=== PATIENT | male | born 1975 | race Two or more races ===

== ENCOUNTER 2025-03-07 17:29 | Emergency (ER) | payer MEDICAID, OTHER ==
[~2025-03-07] VITALS: Ht 177.8 cm; Wt 85.6 kg
[2025-03-07 17:38] VITALS: BP 152/106; PULSE 87; RESP 17; TEMP 98.4; O2SAT 97
[2025-03-08] MEDS ORDERED: PAR20T PO (05:02)
[2025-03-08] MEDS ORDERED: TAMS0.4C39 PO (05:02)
[2025-03-08] MEDS ORDERED: [UNRECOGNIZED DRUG - CODE] PO (05:03)
[2025-03-08] MEDS ORDERED: AMLO1TAB23 PO (05:03)
[2025-03-08] MEDS ORDERED: SULF1TAB75 PO (05:04)
== END 2025-03-07 20:24 | disposition left against medical advice (07) ==
LOC: ER 17:29
DX: R06.02 Shortness of breath (principal); Z53.21 Procedure and treatment not carried out due to patient leaving prior to being seen by health care provider

== ENCOUNTER 2025-03-07 20:38 | Inpatient (IN) | payer MEDICAID, OTHER ==
[~2025-03-07] VITALS: Ht 172.7 cm; Wt 83.6 kg
--- NOTE | 2025-03-07 21:02 | ED.PDOC ---
History of Present Illness HPI Comments 49-year-old male who came to ER for generalized weakness. Patient has a history of hypertension, takes amlodipine for it. Five days ago, patient notes started on Paroxetine, Tamsulosin and Sulfamethoxazole. Earlier today, after taking the said medications, he started feeling weak, dizzy, short of breath, tingling all over and felt like he was about to pass out. Denies any acute chest pains. REVIEW OF SYSTEMS: General: No fever, no chills, or fatigue HEENT: No sore throat, no earache, no congestion, no neck pain. Cardiac: No chest pain. No palpitations. Lungs: (+) shortness of breath, no cough. GI: No nausea, no vomiting, no diarrhea, no constipation, no abdominal pain : No dysuria, frequency, or urgency. No hematuria. Musculoskeletal: No joint pain , no joint swelling, no extremity edema. Skin: No rash, no itching. Neuro: No headache, (+) dizziness, (+) weakness (+) tingling EXAM: General: Awake, alert and oriented. No acute distress. Skin: Skin in warm, dry and intact. Appropriate color for ethnicity. HEENT: The head is normocephalic and atraumatic. Conjunctivae are clear without exudates or hemorrhage. Sclera is non-icteric. EOM are intact. No signs of nystagmus. Eyelids are normal in appearance without swelling or lesions. Oral mucosa is pink and moist Neck: The neck is supple with normal range of motion. No JVD. Cardiac: Heart rate and rhythm are normal. No murmurs, gallops, or rubs are auscultated. Respiratory: No signs of respiratory distress. Lung sounds are clear in all lobes bilaterally without rales, rhonchi, or wheezes. Abdominal: Abdomen is soft, non-tender without distention. Bowel sounds are present and normoactive in all four quadrants. Extremities: Upper and lower extremities are atraumatic in appearance without deformity or edema. Neurological: The patient is awake, alert and oriented to person, place, and time with normal speech. Speech is clear. There is no facial asymmetry. Normal gait Psychiatric: Appropriate mood and affect. Good judgement and insight Chief Complaint: General Weakness Time Seen by MD: 21:02 Reviewed Notes: Nurses Notes Allergies: Coded Allergies: NO KNOWN ALLERGIES (Unverified , 12/26/25) Information Source: Patient Mode of Arrival: Ambulatory Past Medical History PAST MEDICAL HISTORY: HTN Surgical History: Denies all surgeries Family History Family History: Reviewed,noncontributory to illness Social History Smoker: Non-Smoker Alcohol: Denies ETOH Use Drugs: Denies Drug Use Lives In: Home Was a procedure done? Was a procedure done?: No Differential Dx Considerations may include: Anemia, electrolyte imbalance, anxiety, weakness X-Ray, Labs, Meds, VS Vital Signs Date Time Temp Pulse Resp B/P (MAP) Pulse Ox O2 Delivery O2 Flow Rate FiO2 03/07/25 21: 98.2 102 18 160/84 (109) 96 98.2 03/07/25 21:20 98.8 95 15 160/75 (103) 96 98.8 03/07/25 21:20 95 15 95 Room Air* 0 21 03/07/25 20:40 98.9 100 16 164/93 95 98.9 Lab Test 03/07/25 22:26 03/07/25 21:02 Range/Units Troponin I High Sensitivity Pending < 3 L </=54 ng/L White Blood Count 9.8 4.4-10.8 10^3/uL Red Blood Count 4.88 4.5-5.90 10^6/uL Hemoglobin 16.1 13.5-17.5 g/dL Hematocrit 45.4 41.0-53.0 % Mean Corpuscular Volume 93.0 80.0-100.0 fL Mean Corpuscular Hemoglobin 32.9 H 28.0-32.0 pg Mean Corpuscular Hemoglobin Concent 35.4 32.0-36.0 g/dL Red Cell Distribution Width 13.8 11.8-14.3 % Platelet Count 256 140-450 10^3/uL Mean Platelet Volume 7.6 6.9-10.8 fL Neutrophils (%) (Auto) 82.4 H 37.0-80.0 % Lymphocytes (%) (Auto) 11.6 10.0-50.0 % Monocytes (%) (Auto) 5.4 0.0-12.0 % Eosinophils (%) (Auto) 0.2 0.0-7.0 % Basophils (%) (Auto) 0.4 0.0-2.0 % Neutrophils # (Auto) 8.1 1.6-8.6 10 ^3/uL Lymphocytes # (Auto) 1.1 0.4-5.4 10 ^3/uL Monocytes # (Auto) 0.5 0-1.3 10 ^3/uL Eosinophils # (Auto) 0 0-0.8 10 ^3/uL Basophils # (Auto) 0 0-0.2 10 ^3/uL Nucleated Red Blood Cells 0.0 % Sodium Level 132 L 136-145 mmol/L Potassium Level 4.1 3.5-5.1 mmol/L Chloride Level 99 98-107 mmol/L Carbon Dioxide Level 25 20-31 mmol/L Anion Gap 8 5-15 Blood Urea Nitrogen 10 9-23 mg/dL Creatinine 0.98 0.700-1.30 mg/dL Glomerular Filtration Rate Calc 95 >90 mL/min BUN/Creatinine Ratio 10.2 10.0-20.0 Serum Glucose 137 H 74-106 mg/dL Calcium Level 9.2 8.7-10.4 mg/dL Magnesium Level 2.0 1.6-2.6 mg/dL B-Type Natriuretic Peptide 0.95 0-100 pg/mL Current Medications Medications (Trade) Dose Ordered Sig/[place] Route Start Time Stop Time Status Last Admin Sodium Chloride 1,000 ml @ 1,000 mls/hr Q1H ONCE IV 03/07/25 21:00 03/07/25 21:59 DC 03/07/25 21:46 CHEST RADIOGRAPH INDICATION: cp TECHNIQUE: Single frontal view of the chest was obtained COMPARISON: None FINDINGS: Lines and Tubes: None Lungs: No focal consolidation. Pleura: No effusion. No pneumothorax. Cardiomediastinal contours: Unremarkable Bones: No acute osseous abnormality. IMPRESSION: 1. No acute cardiopulmonary disease. Time of 1ST Reevaluation: 20:57 Reevaluation 1ST: Unchanged Patient Education/Counseling: Need For Follow Up Family Education/Counseling: No Family Present SEPSIS Sepsis Screen Date sepsis recognized/suspect: Mar 07, 2025 Time Sepsis recognized/suspect: 2042 Recent Procedure: No On Antibiotic Therapy: No Respiratory Rate >20: No Heart Rate >90: No Temp<36 C (96.8 F) or >38.3 C: No SBP <90 or MAP <65 mmHG: No New Acute Mental Status Change: No Is the patient on CPAP, BIPAP,: No Physician Orders Electrocardigram (03/07/25 20:56) Chest Xray 1 View (03/07/25 20:56) Vital Signs Q1HR (03/07/25 20:56) Electrocardigram (03/07/25 21:56) Electrocardigram (03/07/25 23:56) Troponin-I Hs (03/07/25 21:56) Troponin-I Hs (03/07/25 23:56) Vital Signs Date Time Temp Pulse Resp B/P (MAP) Pulse Ox O2 Delivery O2 Flow Rate FiO2 03/07/25 21:25 98.2 102 18 160/84 (109) 96 98.2 03/07/25 21:20 98.8 95 15 160/75 (103) 96 98.8 03/07/25 21:20 95 15 95 Room Air* 0 21 03/07/25 20:40 98.9 100 16 164/93 95 98.9 Laboratory Tests Test 03/07/25 21:02 White Blood Count 9.8 10^3/uL (4.4-10.8) Medications Medications Dose Ordered Sig/[place] Route Start Time Stop Time Status Last Admin Dose Admin Sodium Chloride 1,000 ml @ 1,000 mls/hr Q1H ONCE IV 03/07/25 21:00 03/07/25 21:59 DC 03/07/25 21:46 Departure 1 Departure Time of Disposition: 23:07 Impression: Primary Impression: Hyponatremia Additional Impressions: Chest pain Shortness of breath Dizziness Disposition: ADMITTED INPATIENT Condition: Stable Comments 49-year-old male who presented with chest pain, shortness of breath and dizziness. Patient admitted to hospitalist service for further treatment, evaluation and monitoring. Critical Care Note Critical Care Time?: No Stability Stability form required: No Heart Score Heart Score: Heart Score Response (Comments) Value History N/A 0 EKG N/A 0 Age N/A 0 Risk Factors N/A 0 Troponin N/A 0 Total 0 I personally scribed for MARSHA ACOSTA MD ([email or web address]) on 03/07/25 at 21:02. Electronically submitted by Frandy Penn ([email or web address]). I personally scribed for MARSHA ACOSTA MD ([email or web address]) on 03/07/25 at 22:49. Electronically submitted by Frandy Penn ([email or web address]). MARSHA ACOSTA MD Mar 07, 2025 21:02
[2025-03-07 21:20] VITALS: PULSE 95; RESP 15; O2SAT 95
--- NOTE | 2025-03-07 21:28 | DVH ---
CHEST RADIOGRAPH INDICATION: cp TECHNIQUE: Single frontal view of the chest was obtained COMPARISON: None FINDINGS: Lines and Tubes: None Lungs: No focal consolidation. Pleura: No effusion. No pneumothorax. Cardiomediastinal contours: Unremarkable Bones: No acute osseous abnormality. IMPRESSION: 1. No acute cardiopulmonary disease.
[2025-03-07 21:35] LABS: Hematocrit 45.4 % (41.0-53.0); Hemoglobin 16.1 g/dL (13.5-17.5); Mean Corpuscular Hemoglobin 32.9 pg (28.0-32.0); Mean Corpuscular Volume 93.0 fL (80.0-100.0); Nucleated Red Blood Cells % 0.0 %
[2025-03-07 21:45] LABS: Chloride 99 mmol/L (98-107); Potassium 4.1 mmol/L (3.5-5.1)
[2025-03-07 21:46] LABS: Anion Gap 8 (5-15); Calcium 9.2 mg/dL (8.7-10.4); Carbon Dioxide 25 mmol/L (20-31)
[2025-03-07] MEDS: SODIUM CHLORIDE 0.9% 1,000 ML IV ONE (21:46)
[2025-03-07 21:47] LABS: Sodium 132 mmol/L (136-145)
[2025-03-07 21:51] LABS: BUN/Creatinine Ratio 10.2 (10.0-20.0); Blood Urea Nitrogen 10 mg/dL (9-23)
[2025-03-07 21:52] LABS: Glucose 137 mg/dL (74-106); Magnesium 2.0 mg/dL (1.6-2.6)
[2025-03-07] MEDS ORDERED: ONDANSETRON HCL 4 MG/2 ML VIAL IV PRN (23:30)
[2025-03-07] MEDS ORDERED: HYDROcodone-ACET 5/325MG TAB PO PRN (23:30)
[2025-03-07] MEDS ORDERED: DOCUSATE SOD 100 MG CAP PO PRN (23:30)
[2025-03-07] MEDS ORDERED: ACETAMINOPHEN 325 MG TAB PO PRN (23:30)
--- NOTE | 2025-03-07 23:53 | DVHHP2 ---
History of Present Illness Reason for Visit: Generalized weakness History of Present Illness The patient is a 49-year-old male with past medical history of hypertension presented to [facility] ED with complaint of generalized weakness. Patient reports that she started on new medications Paroxetine, Tamsulosin, and Sulfamethoxazole 5 days ago. Earlier today, after taking the said medications, he started feeling weakness, dizzy, chest pain, short of breath, tingling all over and felt like he was about to pass out, getting worse that prompted this visit. Patient was seen and evaluated in the ED, laboratory data shows WBC 9.8, platelets 256, sodium 132, potassium 4.1, BUN 10, creatinine 0.98, GFR 95, glucose 137, calcium 9.2, BNP 0.95, troponin 3, blood pressure 160/84, heart rate 102, temperature 98.2 F, O2 saturation 96% on room air. Chest x-ray show no acute cardiopulmonary disease. Please see medication orders section in the computer. On my assessment, patient denied chest pain, no headache, dizziness, diaphoresis, shortness of breaths, no abdominal pain, diarrhea, nausea, vomiting, fever, no chills. Patient was admitted for further evaluation and medical management. Past Medical History HTN Past Surgical History Denies all surgeries Family History Reviewed, noncontributory to the management of this case. Past Social History The patient lives at home, denies smoking, alcohol or illicit drugs abuse. Review of Systems Constitutional: Yes: Weakness; No: Fever, Chills, Sweats, Malaise, Other Eyes: No: Pain, Vision change, Conjunctivae inflammation, Eyelid inflammation, Other, Redness ENT: No: Ear pain, Ear discharge, Nose pain, Nose discharge, Nose congestion, Mouth pain, Mouth swelling, Throat pain, Throat swelling, Other Respiratory: Shortness of breath; No: Cough, Dry, SOB with excertion, Wheezing, Hemoptysis, Pleuritic Pain, Sputum, Wheezing, Other Cardiovascular: Chest Pain; No: Palpitations, Orthopnea, Paroxysmal Noc. Dyspnea, Edema, Lt Headedness, Other Gastrointestinal: No: Nausea, Vomiting, Abdominal Pain, Diarrhea, Constipation, Melena, Hematochezia, Other Genitourinary: No Dysuria, No Frequency, No Incontinence, No Hematuria, No Retention, No Other Musculoskeletal: No: other, neck pain, shoulder pain, arm pain, back pain, hand pain, leg pain, foot pain Skin: No: Rash, Lesions, Jaundice, Bruising, Other Neurological: Other (Dizziness); No: Weakness, Numbness, Incoordination, Change in speech, Confusion, Seizures Allergies: Coded Allergies: NO KNOWN ALLERGIES (Unverified , 03/07/25) Medications Current Medications Medications Dose Ordered Sig/[place] Route Start Time Stop Time Status Last Admin Dose Admin Amlodipine Besylate 5 mg DAILY PO 03/08/25 10:00 Metoprolol Tartrate 25 mg BID PO 03/08/25 10:00 Clonidine HCl 0.1 mg Q4HP PRN PO 03/07/25 23:30 Sodium Chloride 1,000 ml @ 60 mls/hr [id number] IV 03/07/25 23:30 Acetaminophen/ Hydrocodone Bitart 1 tab Q4HP PRN PO 03/07/25 23:30 Ondansetron HCl 4 mg Q4HP PRN IV 03/07/25 23:30 Docusate Sodium 100 mg BIDPRN PRN PO 03/07/25 23:30 Acetaminophen 650 mg Q6HP PRN PO 03/07/25 23:30 Exam Vital Signs Vital Signs Date Time Temp Pulse Resp B/P (MAP) Pulse Ox O2 Delivery O2 Flow Rate FiO2 03/07/25 23:34 98.5 84 18 145/93 (110) 96 98.5 03/07/25 21:20 Room Air* 0 21 General Appearance: Alert, Oriented X3, Cooperative, No acute distress HEENT: Atraumatic, PERRLA, EOMI, Mucous membr. moist/pink Respiratory: Clear to auscultation, Normal air movement Cardiovascular: Regular rate, Normal S1, Normal S2, No murmurs Abdominal: Normal bowel sounds, Soft, No tenderness, No hepatospenomegaly, No masses Extremities: No clubbing, No cyanosis, No edema, Normal pulses, No tenderness/swelling Skin: No rashes, No significant lesion Neuro: Normal speech, Normal tone, Sensation intact, Cranial nerves 3-12 NL, Reflexes 2+, Other (Generalized weakness) Psych/Mental Status: Mental status NL, Mood NL Labs/Xrays Labs Test 03/07/25 22:26 03/07/25 21:02 Range/Units Troponin I High Sensitivity < 3 L </=54 ng/L White Blood Count 9.8 4.4-10.8 10^3/uL Red Blood Count 4.88 4.5-5.90 10^6/uL Hemoglobin 16.1 13.5-17.5 g/dL Hematocrit 45.4 41.0-53.0 % Mean Corpuscular Volume 93.0 80.0-100.0 fL Mean Corpuscular Hemoglobin 32.9 H 28.0-32.0 pg Mean Corpuscular Hemoglobin Concent 35.4 32.0-36.0 g/dL Red Cell Distribution Width 13.8 11.8-14.3 % Platelet Count 256 140-450 10^3/uL Mean Platelet Volume 7.6 6.9-10.8 fL Neutrophils (%) (Auto) 82.4 H 37.0-80.0 % Lymphocytes (%) (Auto) 11.6 10.0-50.0 % Monocytes (%) (Auto) 5.4 0.0-12.0 % Eosinophils (%) (Auto) 0.2 0.0-7.0 % Basophils (%) (Auto) 0.4 0.0-2.0 % Neutrophils # (Auto) 8.1 1.6-8.6 10 ^3/uL Lymphocytes # (Auto) 1.1 0.4-5.4 10 ^3/uL Monocytes # (Auto) 0.5 0-1.3 10 ^3/uL Eosinophils # (Auto) 0 0-0.8 10 ^3/uL Basophils # (Auto) 0 0-0.2 10 ^3/uL Nucleated Red Blood Cells 0.0 % Sodium Level 132 L 136-145 mmol/L Potassium Level 4.1 3.5-5.1 mmol/L Chloride Level 99 98-107 mmol/L Carbon Dioxide Level 25 20-31 mmol/L Anion Gap 8 5-15 Blood Urea Nitrogen 10 9-23 mg/dL Creatinine 0.98 0.700-1.30 mg/dL Glomerular Filtration Rate Calc 95 >90 mL/min BUN/Creatinine Ratio 10.2 10.0-20.0 Serum Glucose 137 H 74-106 mg/dL Calcium Level 9.2 8.7-10.4 mg/dL Magnesium Level 2.0 1.6-2.6 mg/dL B-Type Natriuretic Peptide 0.95 0-100 pg/mL PATIENT: DAMARIS GANDHI ACCT: [id number] UNIT: [id number] : 1975 LOC: ER ROOM / BED: / AGE / SEX: 49 / M ADM STATUS: REG ER SERVICE 55 ORDERING PHYSICIAN: MARSHA ACOSTA MD PROCEDURE(s): CXR1 - CHEST XRAY 1 VIEW REASON: cp ORDER NUMBER(s): [id number], ACCESSION NUMBER(s): [id number] CHEST RADIOGRAPH INDICATION: cp TECHNIQUE: Single frontal view of the chest was obtained COMPARISON: None FINDINGS: Lines and Tubes: None Lungs: No focal consolidation. Pleura: No effusion. No pneumothorax. Cardiomediastinal contours: Unremarkable Bones: No acute osseous abnormality. IMPRESSION: 1. No acute cardiopulmonary disease. SEPSIS Sepsis Screen Date sepsis recognized/suspect: Mar 07, 2025 Time Sepsis recognized/suspect: 2119 Recent Procedure: No On Antibiotic Therapy: No Respiratory Rate >20: No Heart Rate >90: No Temp<36 C (96.8 F) or >38.3 C: No SBP <90 or MAP <65 mmHG: No New Acute Mental Status Change: No Is the patient on CPAP, BIPAP,: No Physician Orders Electrocardigram (03/07/25 20:56) Chest Xray 1 View (03/07/25 20:56) Vital Signs Q1HR (03/07/25 20:56) Electrocardigram (03/07/25 21:56) Electrocardigram (03/07/25 23:56) Troponin-I Hs (03/07/25 23:56) Amlodipine Tablet (Norvasc Tablet) (03/08/25 10:00) Metoprolol Tartrate Tablet (Lopressor Ta (03/08/25 10:00) Clonidine Hcl Tablet (Catapres Tablet) (03/07/25 23:30) Allergies (03/07/25 23:23) Code Status (03/07/25 23:23) Sodium Chloride 0.9% (03/07/25 23:30) Oxygen Per Hour (03/07/25 23:23) Hydrocodone-Acet 5/325mg Tab ([place] 5/32 (03/07/25 23:30) Ondansetron Hcl (Zofran) (03/07/25 23:30) Docusate Sodium Capsule (Colace Capsule) (03/07/25 23:30) Complete Blood Count (03/08/25 04:00) Comprehensive Metabolic Panel (03/08/25 04:00) Cardiac Diet-2gna,Lofat,Lochol (03/08/25 Breakfast) Condition: Serious (03/07/25 23:23) Acetaminophen Tablet (Tylenol Tablet) (03/07/25 23:30) Bedrest With Bathroom Privileg (03/07/25 23:23) Sequential Compression Device (03/07/25 ) Vital Signs Date Time Temp Pulse Resp B/P (MAP) Pulse Ox O2 Delivery O2 Flow Rate FiO2 03/07/25 23:34 98.5 84 18 145/93 (110) 96 98.5 03/07/25 21:25 98.2 102 18 160/84 (109) 96 98.2 03/07/25 21:20 98.8 95 15 160/75 (103) 96 98.8 03/07/25 21:20 95 15 95 Room Air* 0 21 03/07/25 20:40 98.9 100 16 164/93 95 98.9 Laboratory Tests Test 03/07/25 21:02 White Blood Count 9.8 10^3/uL (4.4-10.8) Medications Medications Dose Ordered Sig/[place] Route Start Time Stop Time Status Last Admin Dose Admin Sodium Chloride 1,000 ml @ 1,000 mls/hr Q1H ONCE IV 03/07/25 21:00 03/07/25 21:59 DC 03/07/25 21:46 1,000 MLS/HR Assessment/Plan Assessment/Plan Chest pain Hyponatremia Hyperglycemia Dizziness Hypertension Shortness of breaths Generalized weakness Plan 1. Admit to telemetry unit 2. Breathing treatment 3. Pain control management 4. Management of fluids and electrolytes 5. Consultation for hospitalist 6. Diagnostic tests chest x-ray 7. DVT prophylaxis-on SCDs 8. Repeat labs CBC, CMP in a.m. 9. Continue with current medical management 10. Treatment plan discussed with patient and RN. Patient verbalized understanding. Plan discussed with: Patient, Other (RN) My Orders Orders - ZANE VALENTIN DNP Procedure Category Date Status Time Amlodipine Tablet PHA 03/08/25 In Process (Norvasc Tablet) 10:00 Metoprolol Tartrate PHA 03/08/25 In Process Tablet (Lopressor Ta 10:00 Clonidine Hcl Tablet PHA 03/07/25 In Process (Catapres Tablet) 23:30 Allergies IVAN 03/07/25 In Process 23:23 Code Status CODE 03/07/25 Transmitted 23:23 Sodium Chloride 0.9% PHA 03/07/25 In Process 23:30 Oxygen Per Hour RT 03/07/25 Transmitted 23:23 Hydrocodone-Acet PHA 03/07/25 In Process 5/325mg Tab ([place] 23:30 Ondansetron Hcl PHA 03/07/25 In Process (Zofran) 23:30 Docusate Sodium PHA 03/07/25 In Process Capsule (Colace 23:30 Complete Blood Count LAB 03/08/25 Verified 04:00 Comprehensive LAB 03/08/25 Verified Metabolic Panel 04:00 Cardiac DIET 03/08/25 Transmitted Diet-2gna,Lofat,Lochol Breakfast Condition: Serious IVAN 03/07/25 In Process 23:23 Acetaminophen Tablet PHA 03/07/25 In Process (Tylenol Tablet) 23:30 Bedrest With Bathroom IVAN 03/07/25 In Process Privileg 23:23 Sequential IVAN 03/07/25 In Process Compression Device Problem List: (1) Chest pain (2) Hyponatremia (3) Dizziness (4) Shortness of breath (5) Hypertension (6) Hyperglycemia (7) Generalized weakness Date of Service: Mar 07, 2025 Billing Provider: ZANE VALENTIN DNP Common Visit Codes: [id number] INP/OBS CARE (HIGH) ZANE VALENTIN DNP Mar 07, 2025 23:53
[2025-03-08] VITALS (9 sets, daily range): BP systolic 98–130; BP diastolic 65–90; PULSE 56–72; RESP 16–18; TEMP 97.7–98.4; O2SAT 94–97
[2025-03-08] MEDS ORDERED: NITROGLYCERIN 0.4 MG SL TAB SL PRN
[2025-03-08] MEDS ORDERED: MORPHINE SULFATE INJ 2 MG/ml SYRG IV PRN
[2025-03-08] MEDS: SODIUM CHLORIDE 0.9% 1,000 ML IV SCH (03:07)
[2025-03-08 03:32] LABS: Hematocrit 44.5 % (41.0-53.0); Hemoglobin 15.4 g/dL (13.5-17.5); Mean Corpuscular Hemoglobin 32.4 pg (28.0-32.0); Mean Corpuscular Volume 93.4 fL (80.0-100.0); Nucleated Red Blood Cells % 0.1 %
[2025-03-08 04:02] LABS: Alanine Aminotransferase 24 U/L (7-40); Alkaline Phosphatase 99 U/L (46-116); Anion Gap 12 (5-15); BUN/Creatinine Ratio 7.8 (10.0-20.0); Bilirubin, Total 0.6 mg/dL (0.2-1.0); Carbon Dioxide 20 mmol/L (20-31); Chloride 102 mmol/L (98-107); Glucose 101 mg/dL (74-106); Potassium 3.8 mmol/L (3.5-5.1); Total Protein 7.3 g/dL (5.7-8.2)
[2025-03-08 04:10] LABS: Sodium 134 mmol/L (136-145)
[2025-03-08 04:11] LABS: Blood Urea Nitrogen 6 mg/dL (9-23); Calcium 8.6 mg/dL (8.7-10.4)
[2025-03-08 04:19] LABS: Albumin 4.2 g/dL (3.2-4.8)
[2025-03-08] MEDS ORDERED: PAR20T PO (05:02)
[2025-03-08] MEDS ORDERED: TAMS0.4C39 PO (05:02)
[2025-03-08] MEDS ORDERED: [UNRECOGNIZED DRUG - CODE] PO (05:03)
[2025-03-08] MEDS ORDERED: AMLO1TAB23 PO (05:03)
[2025-03-08] MEDS ORDERED: SULF1TAB75 PO (05:04)
[2025-03-08] MEDS: METOPROLOL TARTRATE 25 MG TAB PO SCH (10:05)
[2025-03-08 17:05] LABS: Creatine Kinase IFCC 78 U/L (46-171)
--- NOTE | 2025-03-08 17:55 | DVHPN2 ---
Subjective Patient complains of frequent urination. Patient apparently was seen by PCP and started on Flomax/Bactrim and paroxetine for anxiety about 5-6 days ago. Changes from previous H/P or p: No Changes Eyes: No Pain, No Vision change, No Conjunctivae inflammation, No Eyelid inflammation, No Other, No Redness ENT: No Ear pain, No Ear discharge, No Nose pain, No Nose discharge, No Nose congestion, No Mouth pain, No Mouth swelling, No Throat pain, No Throat swelling, No Other Cardiovascular: Chest Pain; No Palpitations, No Orthopnea, No Paroxysmal Noc. Dyspnea, No Edema, No Lt Headedness, No Other Respiratory: No Cough, No Dry; Shortness of breath; No SOB with excertion, No Wheezing, No Hemoptysis, No Pleuritic Pain, No Sputum, No Other Gastrointestinal: No Nausea, No Vomiting, No Abdominal Pain, No Diarrhea, No Constipation, No Melena, No Hematochezia, No Other Genitourinary: No Dysuria, No Frequency, No Incontinence, No Hematuria, No Retention, No Other Musculoskeletal: No other, No neck pain, No shoulder pain, No arm pain, No back pain, No hand pain, No leg pain, No foot pain Skin: No Rash, No Lesions, No Jaundice, No Bruising, No Other Objective Vitals Vital Signs Date Time Temp Pulse Resp B/P (MAP) Pulse Ox O2 Delivery O2 Flow Rate FiO2 03/08/25 17:00 98.2 63 16 130/90 (103) 97 98.2 03/08/25 08:00 Room Air* 0 95 21 Intake/Output Intake and Output 03/08/25 07:00 Intake Total 0 ml Balance 0 ml Intake Oral 0 ml Exam Anxious gentleman comfortable in bed. at bedside. Alert awake oriented x3. HEENT neck supple no JVD. Heart regular rate and rhythm S1-S2. Lungs fair air movement without rales wheezes. Abdomen soft nontender nondistended positive bowel sounds. Extremities no edema positive pulses. Medications Current Medications Medications Dose Ordered Sig/[place] Route Start Time Stop Time Status Last Admin Dose Admin Amlodipine Besylate 5 mg DAILY PO 03/08/25 10:00 03/08/25 10:06 5 MG Clonidine HCl 0.1 mg Q4HP PRN PO 03/07/25 23:30 Sodium Chloride 1,000 ml @ 60 mls/hr [id number] IV 03/07/25 23:30 03/08/25 03:07 60 MLS/HR Acetaminophen/ Hydrocodone Bitart 1 tab Q4HP PRN PO 03/07/25 23:30 Ondansetron HCl 4 mg Q4HP PRN IV 03/07/25 23:30 Docusate Sodium 100 mg BIDPRN PRN PO 03/07/25 23:30 Acetaminophen 650 mg Q6HP PRN PO 03/07/25 23:30 Paroxetine HCl 10 mg DAILY PO 03/09/25 10:00 Laboratory Results Laboratory Tests 03/08/25 02:33 Chemistry Test 03/07/25 21:02 03/08/25 02:33 Calcium Level 9.2 mg/dL (8.7-10.4) 8.6 mg/dL (8.7-10.4) L Magnesium Level 2.0 mg/dL (1.6-2.6) Albumin 4.2 g/dL (3.2-4.8) Total Protein 7.3 g/dL (5.7-8.2) Coagulation Test 03/08/25 16:25 D-Dimer, Quantitative < 0.19 mg/L FEU (0.0-0.49) Cardiac Markers Test 03/07/25 21:02 B-Type Natriuretic Peptide 0.95 pg/mL (0-100) LFT Test 03/08/25 02:33 Alanine Aminotransferase (ALT) 24 U/L (7-40) Alkaline Phosphatase 99 U/L (46-116) Aspartate Amino Transferase (AST) 24 U/L (13-40) Total Bilirubin 0.6 mg/dL (0.2-1.0) Assessment/Plan Assessment/Plan For his nonspecific complaints we will do general workup and monitor him. I will check thyroid panel B12 folate and vitamin-D levels. Prostate ultrasound for his symptoms and urology consultation. I will hold Flomax given patient already has frequent urination. We will send a UA for any urinary tract infection/prostatitis. Follow labs. Continue rest of supportive care and treatment. Further clinical management per clinical course. Discussed with the patient and his along with the nurse at bedside regarding his care plan. Plan discussed with: Patient, Spouse, Other My Orders Orders - RAGHU BERNAL MD Procedure Category Date Status Time Urinalysis LAB 03/08/25 Logged 15:59 Drug Screen LAB 03/08/25 Logged 15:59 Orthostatic Vital ORDERS 03/08/25 Transmitted Signs 15:59 Paroxetine Tablet PHA 03/09/25 In Process (Paxil Tablet) 10:00 Thyroid Stimulating LAB 03/08/25 Transmitted Hormone 17:48 Free T4 (Free LAB 03/08/25 Transmitted Thyroxine) 17:48 Vitamin B12 LAB 03/08/25 Transmitted 17:48 Vitamin D, 25-Hydroxy LAB 03/08/25 Transmitted 17:48 * Urology Consult CONS 03/08/25 Transmitted 17:48 Abdomen Complete US 03/08/25 Transmitted Sonogram 17:48 Problem List: (1) Hyponatremia (2) Generalized weakness (3) Hypertension Date of Service: Mar 08, 2025 Billing Provider: RAGHU BERNAL MD Common Visit Codes: [id number] INP/OBS CARE(HIGH) RAGHU BERNAL MD Mar 08, 2025 17:55
[2025-03-08 18:30] LABS: Urine Protein, UAD Negative (Negative)
[2025-03-08 18:38] LABS: Amphetamine Screen, Urine Neg (NEGATIVE); Barbiturate Scree,Urine Neg (NEGATIVE); Benzodiazephine Screen, Urine Neg (NEGATIVE); Cannabinoid Screen, Urine Neg (NEGATIVE); Cocaine Screen, Urine Neg (NEGATIVE); Opiate Scree,Urine Neg (NEGATIVE); Phencyclidine Screen, Urine Neg (NEGATIVE)
--- NOTE | 2025-03-08 19:11 | DVH ---
URINARY BLADDER ULTRASOUND REASON FOR EXAM: Prostate ultrasound eval for prostatomegaly COMPARISON: None TECHNIQUE: Real-time sector scans in multiple planes were obtained over the urinary bladder. FINDINGS: At the time of the examination, the bladder volume is approximately 226 cc. There is no bladder wall thickening. The right and the left ureteral jets are visualized during this examination. The prostate measures 3.5 x 3.1 x 3.7 cm (estimated 21 cc). There is a 0.9 x 0.6 x 0.8 cm nonshadowing echogenic focus near the apex on the right of uncertain etiology. IMPRESSION: Prostate volume estimated at 21 cc, not significantly enlarged. Nonshadowing 0.9 cm echogenic focus on the right near the prostate apex of uncertain etiology. A small focus of fat is a consideration.
[2025-03-09] VITALS (8 sets, daily range): BP systolic 103–127; BP diastolic 72–92; PULSE 54–74; RESP 16–20; TEMP 96.5–98.2; O2SAT 93–97
[2025-03-09] MEDS: PARoxetine 20 MG TAB PO SCH (09:55)
--- NOTE | 2025-03-09 16:53 | DVHPN2 ---
Subjective He is clinically stable. Weakness is improved. Urinary frequency is also improved. Pending Urology consultation. Bladder ultrasound shows a normal size prostate volume measured at 21 cc. GC serology sent pending. TSH mildly elevated free T4 is pending Changes from previous H/P or p: No Changes Eyes: No Pain, No Vision change, No Conjunctivae inflammation, No Eyelid inflammation, No Other, No Redness ENT: No Ear pain, No Ear discharge, No Nose pain, No Nose discharge, No Nose congestion, No Mouth pain, No Mouth swelling, No Throat pain, No Throat swelling, No Other Cardiovascular: Chest Pain; No Palpitations, No Orthopnea, No Paroxysmal Noc. Dyspnea, No Edema, No Lt Headedness, No Other Respiratory: No Cough, No Dry; Shortness of breath; No SOB with excertion, No Wheezing, No Hemoptysis, No Pleuritic Pain, No Sputum, No Other Gastrointestinal: No Nausea, No Vomiting, No Abdominal Pain, No Diarrhea, No Constipation, No Melena, No Hematochezia, No Other Genitourinary: No Dysuria, No Frequency, No Incontinence, No Hematuria, No Retention, No Other Musculoskeletal: No other, No neck pain, No shoulder pain, No arm pain, No back pain, No hand pain, No leg pain, No foot pain Skin: No Rash, No Lesions, No Jaundice, No Bruising, No Other Objective Vitals Vital Signs Date Time Temp Pulse Resp B/P (MAP) Pulse Ox O2 Delivery O2 Flow Rate FiO2 03/09/25 13:00 97.0 74 19 121/83 (96) 97 97.0 03/09/25 08:00 Room Air* 0 95 21 Intake/Output Intake and Output 03/09/25 07:00 Intake Total 3260 ml Output Total 800 ml Balance 2460 ml Intake Oral 2540 ml IV Total 720 ml Output Urine Total 800 ml # Voids 6 # Bowel Movements 1 Exam Comfortable in bed no distress. Feels better. Heart regular rate and rhythm. Lungs fair air movement without wheezing. Abdomen soft nontender positive bowel sounds. Extremities no edema Medications Current Medications Medications Dose Ordered Sig/[place] Route Start Time Stop Time Status Last Admin Dose Admin Amlodipine Besylate 5 mg DAILY PO 03/08/25 10:00 03/09/25 09:55 5 MG Clonidine HCl 0.1 mg Q4HP PRN PO 03/07/25 23:30 Sodium Chloride 1,000 ml @ 60 mls/hr [id number] IV 03/07/25 23:30 03/09/25 08:50 60 MLS/HR Acetaminophen/ Hydrocodone Bitart 1 tab Q4HP PRN PO 03/07/25 23:30 Ondansetron HCl 4 mg Q4HP PRN IV 03/07/25 23:30 Docusate Sodium 100 mg BIDPRN PRN PO 03/07/25 23:30 Acetaminophen 650 mg Q6HP PRN PO 03/07/25 23:30 Paroxetine HCl 10 mg DAILY PO 03/09/25 10:00 03/09/25 09:55 10 MG Levofloxacin/ Dextrose 150 ml @ 100 mls/hr DAILY IV 03/09/25 10:00 03/09/25 09:55 100 MLS/HR Laboratory Results Laboratory Tests 03/08/25 02:33 Urinalysis Test 03/08/25 16:30 Urine Color Colorless (Yellow) Urine Clarity Clear (Clear) Urine pH 7.0 (5.0-9.0) Urine Specific [place] 1.005 (1.001-1.035) Urine Protein Negative (Negative) Urine Ketones Negative (Negative) Urine Blood Negative /uL (Negative) Urine Nitrite Negative (Negative) Urine Bilirubin Negative (Negative) Urine Urobilinogen Normal mg/dL (Negative) Urine Leukocyte Esterase Negative /uL (Negative) Urine RBC <1 /hpf (0 - 3) Urine Microscopic WBC < 1 /HPF (0-3) Urine Squamous Epithelial Cells None seen /hpf (<5) Urine Bacteria None seen /hpf (None Seen) Urine Glucose Normal mg/dL (Normal) Assessment/Plan Assessment/Plan Await Urology recommendations. Questionable prostatitis. Meantime continue present management as he is on. Further clinical management per clinical course. Discussed with the patient and nurse at bedside. Plan discussed with: Patient, Other My Orders Orders - RAGHU BERNAL MD Procedure Category Date Status Time Free T4 (Free LAB 03/08/25 In Process Thyroxine) 17:48 Vitamin B12 LAB 03/08/25 In Process 17:48 Vitamin D, 25-Hydroxy LAB 03/08/25 In Process 17:48 * Urology Consult CONS 03/08/25 Transmitted 17:48 Bladder US 03/08/25 Resulted 17:48 Chlamydia/Gc LAB 03/08/25 In Process Amplification 17:56 Levofloxacin 750mg PHA 03/09/25 In Process (Levaquin) 10:00 Electrocardigram EKG 03/08/25 Logged 17:56 Urinalysis LAB 03/08/25 Logged 18:06 Problem List: (1) Generalized weakness (2) Hypertension (3) Prostatitis Date of Service: Mar 09, 2025 Billing Provider: RAGHU BERNAL MD Common Visit Codes: [id number] INP/OBS CARE(MOD) RAGHU BERNAL MD Mar 09, 2025 16:53
[2025-03-10] VITALS (8 sets, daily range): BP systolic 0–135; BP diastolic 57–92; PULSE 54–72; RESP 16–18; TEMP 97.9–98.6; O2SAT 94–96
--- NOTE | 2025-03-10 08:22 | DVHINCON2 ---
History of Present Illness HPI 49 year old male admitted after presenting to the emergency department on March 07 with generalized weakness, dizziness, shortness of breath, diffuse tingling, and near syncope. Urology was consulted for evaluation and management of urinary frequency. He has a history of hypertension treated with amlodipine. Five days prior to admission, he was started on paroxetine, tamsulosin, and sulfamethoxazole, after which his symptoms developed. At this time, his weakness has improved and his urinary frequency has also improved. He is clinically stable, voiding independently, and vital signs are stable. Home Meds Reported Medications Sulfamethoxazole W/Trimethopri (Smz-Tmp Ds) 1 Tab Tab, 1 TAB PO HS, TAB 03/08/25 Amlodipine Besylate (Amlodipine Besylate) 10 Mg Tab, 1 TAB PO DAILY, #30 TAB 5 Refills 03/08/25 Paroxetine (PAXIL TABLET) 20 Mg Tb, 10 MG PO HS, TAB 03/08/25 Tamsulosin Hcl (Tamsulosin Hcl) 0.4 Mg Cap, 0.4 MG PO DAILY, CAP 03/08/25 Discontinued Reported Medications Trimethoprim (Trimethoprim) 100 Mg Tab, 100 MG PO DAILY, TAB 03/08/25 H&P Exam Vital Signs Vital Signs Date Time Temp Pulse Resp B/P (MAP) Pulse Ox O2 Delivery O2 Flow Rate FiO2 03/10/25 05:00 97.9 58 16 116/57 (76) 95 97.9 03/09/25 20:00 Room Air* 0 21 Labs/Xrays Labs Test 03/08/25 16:30 03/08/25 16:25 03/08/25 02:33 03/08/25 00:48 Range/Units Urine Color Colorless Yellow Urine Clarity Clear Clear Urine pH 7.0 5.0-9.0 Urine Specific [place] 1.005 1.001-1.035 Urine Protein Negative Negative Urine Ketones Negative Negative Urine Blood Negative Negative /uL Urine Nitrite Negative Negative Urine Bilirubin Negative Negative Urine Urobilinogen Normal Negative mg/dL Urine Leukocyte Esterase Negative Negative /uL Urine RBC <1 0 - 3 /hpf Urine Microscopic WBC < 1 0-3 /HPF Urine Squamous Epithelial Cells None seen <5 /hpf Urine Bacteria None seen None Seen /hpf Urine Glucose Normal Normal mg/dL Urine Opiates Screen Neg NEGATIVE Urine Fentanyl Screen Neg NEGATIVE Urine Barbiturates Screen Neg NEGATIVE Urine Phencyclidine Screen Neg NEGATIVE Urine Amphetamines Screen Neg NEGATIVE Urine Benzodiazepines Screen Neg NEGATIVE Urine Cocaine Screen Neg NEGATIVE Urine Cannabinoids Screen Neg NEGATIVE D-Dimer, Quantitative < 0.19 0.0-0.49 mg/L FEU Creatine Kinase 78 46-171 U/L Thyroid Stimulating Hormone (TSH) 5.03 H 0.55-4.78 uIU/mL Plasma/Serum Blood Alcohol < 3.0 <10 mg/dL White Blood Count 7.7 4.4-10.8 10^3/uL Red Blood Count 4.76 4.5-5.90 10^6/uL Hemoglobin 15.4 13.5-17.5 g/dL Hematocrit 44.5 41.0-53.0 % Mean Corpuscular Volume 93.4 80.0-100.0 fL Mean Corpuscular Hemoglobin 32.4 H 28.0-32.0 pg Mean Corpuscular Hemoglobin Concent 34.7 32.0-36.0 g/dL Red Cell Distribution Width 13.5 11.8-14.3 % Platelet Count 235 140-450 10^3/uL Mean Platelet Volume 7.8 6.9-10.8 fL Neutrophils (%) (Auto) 68.6 37.0-80.0 % Lymphocytes (%) (Auto) 24.7 10.0-50.0 % Monocytes (%) (Auto) 5.7 0.0-12.0 % Eosinophils (%) (Auto) 0.7 0.0-7.0 % Basophils (%) (Auto) 0.3 0.0-2.0 % Neutrophils # (Auto) 5.3 1.6-8.6 10 ^3/uL Lymphocytes # (Auto) 1.9 0.4-5.4 10 ^3/uL Monocytes # (Auto) 0.4 0-1.3 10 ^3/uL Eosinophils # (Auto) 0.1 0-0.8 10 ^3/uL Basophils # (Auto) 0 0-0.2 10 ^3/uL Nucleated Red Blood Cells 0.1 % Sodium Level 134 L 136-145 mmol/L Potassium Level 3.8 3.5-5.1 mmol/L Chloride Level 102 98-107 mmol/L Carbon Dioxide Level 20 20-31 mmol/L Anion Gap 12 5-15 Blood Urea Nitrogen 6 L 9-23 mg/dL Creatinine 0.77 0.700-1.30 mg/dL Glomerular Filtration Rate Calc 110 >90 mL/min BUN/Creatinine Ratio 7.8 L 10.0-20.0 Serum Glucose 101 74-106 mg/dL Calcium Level 8.6 L 8.7-10.4 mg/dL Total Bilirubin 0.6 0.2-1.0 mg/dL Aspartate Amino Transferase (AST) 24 13-40 U/L Alanine Aminotransferase (ALT) 24 7-40 U/L Alkaline Phosphatase 99 46-116 U/L Total Protein 7.3 5.7-8.2 g/dL Albumin 4.2 3.2-4.8 g/dL Troponin I High Sensitivity 3 L </=54 ng/L Test 03/07/25 21:02 Range/Units Magnesium Level 2.0 1.6-2.6 mg/dL B-Type Natriuretic Peptide 0.95 0-100 pg/mL Assessment/Plan Plan urinary frequency that has improved, likely multifactorial and possibly related to recent medication changes. There is no evidence of infection, obstruction, urinary retention, or clinically significant prostatic enlargement. The echogenic focus near the prostate is nonspecific and not clearly obstructive. Tamsulosin may have contributed to his dizziness and near syncope given normal prostate size and lack of obstruction. Plan is no acute urologic intervention at this time. Recommend holding tamsulosin.. No indication for antibiotics from a urologic standpoint as urinalysis is negative. Continue to monitor voiding status while inpatient. Outpatient urology follow up can be arranged if urinary symptoms recur or persist, at which time further evaluation including repeat imaging or cystoscopy can be considered if clinically indicated. Plan discussed with: Patient, Other HOSSEIN KELSEY NP Mar 10, 2025 08:22
[2025-03-10 13:29] LABS: Free T4 (Free Thyroxine) 1.43 ng/dL (0.89-1.76)
--- NOTE | 2025-03-10 17:07 | DVHPN2 ---
Subjective I am assuming the care of the patient from today onwards, urology consult is pending. Changes from previous H/P or p: No Changes Eyes: No Pain, No Vision change, No Conjunctivae inflammation, No Eyelid inflammation, No Other, No Redness ENT: No Ear pain, No Ear discharge, No Nose pain, No Nose discharge, No Nose congestion, No Mouth pain, No Mouth swelling, No Throat pain, No Throat swelling, No Other Cardiovascular: Chest Pain; No Palpitations, No Orthopnea, No Paroxysmal Noc. Dyspnea, No Edema, No Lt Headedness, No Other Respiratory: No Cough, No Dry; Shortness of breath; No SOB with excertion, No Wheezing, No Hemoptysis, No Pleuritic Pain, No Sputum, No Other Gastrointestinal: No Nausea, No Vomiting, No Abdominal Pain, No Diarrhea, No Constipation, No Melena, No Hematochezia, No Other Genitourinary: No Dysuria, No Frequency, No Incontinence, No Hematuria, No Retention, No Other Musculoskeletal: No other, No neck pain, No shoulder pain, No arm pain, No back pain, No hand pain, No leg pain, No foot pain Skin: No Rash, No Lesions, No Jaundice, No Bruising, No Other Objective Vitals Vital Signs Date Time Temp Pulse Resp B/P (MAP) Pulse Ox O2 Delivery O2 Flow Rate FiO2 03/10/25 12: 98.6 66 18 128/86 (100) 96 98.6 03/10/25 08:00 Room Air* 0 95 21 Intake/Output Intake and Output 03/10/25 07:00 Intake Total 3130 ml Balance 3130 ml Intake Oral 1080 ml IV Total 2050 ml # Voids 2 Exam HEENT pupils are reactive Neck is supple CV is S1-S2 regular rate and rhythm Diminished breath sounds bases GI positive bowel sound Extremity no edema ANY [employer]ES [employer] no motor deficit Medications Current Medications Medications Dose Ordered Sig/[place] Route Start Time Stop Time Status Last Admin Dose Admin Amlodipine Besylate 5 mg DAILY PO 03/08/25 10:00 03/10/25 10:12 5 MG Clonidine HCl 0.1 mg Q4HP PRN PO 03/07/25 23:30 Sodium Chloride 1,000 ml @ 60 mls/hr [id number] IV 03/07/25 23:30 03/10/25 01:00 60 MLS/HR Acetaminophen/ Hydrocodone Bitart 1 tab Q4HP PRN PO 03/07/25 23:30 Ondansetron HCl 4 mg Q4HP PRN IV 03/07/25 23:30 Docusate Sodium 100 mg BIDPRN PRN PO 03/07/25 23:30 Acetaminophen 650 mg Q6HP PRN PO 03/07/25 23:30 Paroxetine HCl 10 mg DAILY PO 03/09/25 10:00 03/09/25 09:55 10 MG Levofloxacin/ Dextrose 150 ml @ 100 mls/hr DAILY IV 03/09/25 10:00 03/10/25 10:13 100 MLS/HR Laboratory Results Laboratory Tests 03/08/25 02:33 Urinalysis Test 03/08/25 16:30 Urine Color Colorless (Yellow) Urine Clarity Clear (Clear) Urine pH 7.0 (5.0-9.0) Urine Specific [place] 1.005 (1.001-1.035) Urine Protein Negative (Negative) Urine Ketones Negative (Negative) Urine Blood Negative /uL (Negative) Urine Nitrite Negative (Negative) Urine Bilirubin Negative (Negative) Urine Urobilinogen Normal mg/dL (Negative) Urine Leukocyte Esterase Negative /uL (Negative) Urine RBC <1 /hpf (0 - 3) Urine Microscopic WBC < 1 /HPF (0-3) Urine Squamous Epithelial Cells None seen /hpf (<5) Urine Bacteria None seen /hpf (None Seen) Urine Glucose Normal mg/dL (Normal) Assessment/Plan Assessment/Plan 1. Urinary frequency resolved, DC tamsulosin 2. No evidence of prostatitis, no indication for antibiotics as per Urology 3. Anxiety and depression disorder currently compensated 4. Hypertension -follow up Urology recommendation, discharge plan. Plan discussed with: Patient Problem List: (1) Generalized weakness (2) Hypertension (3) Prostatitis Date of Service: Mar 10, 2025 Billing Provider: THERESA OTERO MD Common Visit Codes: [id number] INP/OBS CARE(HIGH) THERESA OTERO MD Mar 10, 2025 17:07
[2025-03-11] VITALS (8 sets, daily range): BP systolic 119–145; BP diastolic 79–96; PULSE 55–67; RESP 16–17; TEMP 97.5–98.7; O2SAT 96–98
--- NOTE | 2025-03-11 19:22 | DVHDS2 ---
Discharge Summary Date of Admission Mar 07, 2025 at 23:52 Date of Discharge: Mar 11, 2025 Labs/Diagnostic Data: Laboratory Results Test 03/08/25 16:30 03/08/25 16:25 03/08/25 02:33 03/08/25 00:48 Urine Color Colorless (Yellow) Urine Clarity Clear (Clear) Urine pH 7.0 (5.0-9.0) Urine Specific [place] 1.005 (1.001-1.035) Urine Protein Negative (Negative) Urine Ketones Negative (Negative) Urine Blood Negative /uL (Negative) Urine Nitrite Negative (Negative) Urine Bilirubin Negative (Negative) Urine Urobilinogen Normal mg/dL (Negative) Urine Leukocyte Esterase Negative /uL (Negative) Urine RBC <1 /hpf (0 - 3) Urine Microscopic WBC < 1 /HPF (0-3) Urine Squamous Epithelial Cells None seen /hpf (<5) Urine Bacteria None seen /hpf (None Seen) Urine Glucose Normal mg/dL (Normal) Urine Opiates Screen Neg (NEGATIVE) Urine Fentanyl Screen Neg (NEGATIVE) Urine Barbiturates Screen Neg (NEGATIVE) Urine Phencyclidine Screen Neg (NEGATIVE) Urine Amphetamines Screen Neg (NEGATIVE) Urine Benzodiazepines Screen Neg (NEGATIVE) Urine Cocaine Screen Neg (NEGATIVE) Urine Cannabinoids Screen Neg (NEGATIVE) D-Dimer, Quantitative < 0.19 mg/L FEU (0.0-0.49) Creatine Kinase 78 U/L (46-171) Vitamin B12 Level 413 pg/mL (211-911) Vitamin D 25-Hydroxy 25.7 ng/mL (30.0-100) Thyroid Stimulating Hormone (TSH) 5.03 uIU/mL (0.55-4.78) Free Thyroxine (T4) Calculated 1.43 ng/dL (0.89-1.76) Plasma/Serum Blood Alcohol < 3.0 mg/dL (<10) White Blood Count 7.7 10^3/uL (4.4-10.8) Red Blood Count 4.76 10^6/uL (4.5-5.90) Hemoglobin 15.4 g/dL (13.5-17.5) Hematocrit 44.5 % (41.0-53.0) Mean Corpuscular Volume 93.4 fL (80.0-100.0) Mean Corpuscular Hemoglobin 32.4 pg (28.0-32.0) Mean Corpuscular Hemoglobin Concent 34.7 g/dL (32.0-36.0) Red Cell Distribution Width 13.5 % (11.8-14.3) Platelet Count 235 10^3/uL (140-450) Mean Platelet Volume 7.8 fL (6.9-10.8) Neutrophils (%) (Auto) 68.6 % (37.0-80.0) Lymphocytes (%) (Auto) 24.7 % (10.0-50.0) Monocytes (%) (Auto) 5.7 % (0.0-12.0) Eosinophils (%) (Auto) 0.7 % (0.0-7.0) Basophils (%) (Auto) 0.3 % (0.0-2.0) Neutrophils # (Auto) 5.3 10 ^3/uL (1.6-8.6) Lymphocytes # (Auto) 1.9 10 ^3/uL (0.4-5.4) Monocytes # (Auto) 0.4 10 ^3/uL (0-1.3) Eosinophils # (Auto) 0.1 10 ^3/uL (0-0.8) Basophils # (Auto) 0 10 ^3/uL (0-0.2) Nucleated Red Blood Cells 0.1 % Sodium Level 134 mmol/L (136-145) Potassium Level 3.8 mmol/L (3.5-5.1) Chloride Level 102 mmol/L (98-107) Carbon Dioxide Level 20 mmol/L (20-31) Anion Gap 12 (5-15) Blood Urea Nitrogen 6 mg/dL (9-23) Creatinine 0.77 mg/dL (0.700-1.30) Glomerular Filtration Rate Calc 110 mL/min (>90) BUN/Creatinine Ratio 7.8 (10.0-20.0) Serum Glucose 101 mg/dL (74-106) Calcium Level 8.6 mg/dL (8.7-10.4) Total Bilirubin 0.6 mg/dL (0.2-1.0) Aspartate Amino Transferase (AST) 24 U/L (13-40) Alanine Aminotransferase (ALT) 24 U/L (7-40) Alkaline Phosphatase 99 U/L (46-116) Total Protein 7.3 g/dL (5.7-8.2) Albumin 4.2 g/dL (3.2-4.8) Troponin I High Sensitivity 3 ng/L (</=54) Test 03/07/25 21:02 Magnesium Level 2.0 mg/dL (1.6-2.6) B-Type Natriuretic Peptide 0.95 pg/mL (0-100) Other Laboratory Tests 03/08/25 02:33 Brief Hx & Hospital Course: 49-year-old male with a known history of hypertension, anxiety and depression disorder was recently started on tamsulosin presented to the hospital with a urinary frequency and generalized weakness. Patient was eventually initially started on IV antibiotics although UA was negative. Patient was consulted to being diagnosed with a prostatitis. Urology was consulted no evidence of prostatitis. Please discharge the patient without any antibiotics and hold tamsulosin. Condition at Discharge: Stable Final Diagnosis/Problems List 1. Urinary frequency suspect secondary to tamsulosin, resolved 2. No evidence of prostatitis as per Urology 3. Anxiety and depression disorder 4. Hypertension Discharge Disposition: Home SNF Discharge Will this Physician continue t: No Discharge Instruct/Medications Diet: Cardiac 2g Na,low cholest Activity: No Restrictions, As Tolerated Follow Up/Referral: Please follow up with the PCP in one week Continued Medications: Amlodipine Besylate (Amlodipine Besylate) 10 Mg Tab 1 TAB PO DAILY, #30 TAB 5 Refills Paroxetine (Paxil Tablet) 20 Mg Tb 10 MG PO HS, TAB Discontinued Medications: Sulfamethoxazole W/Trimethopri (Smz-Tmp Ds) 1 Tab Tab 1 TAB PO HS, TAB Tamsulosin Hcl (Tamsulosin Hcl) 0.4 Mg Cap 0.4 MG PO DAILY, CAP Scheduled Amlodipine Besylate (Amlodipine Besylate), 1 TAB PO DAILY, (Reported) Paroxetine (Paxil Tablet), 10 MG PO HS, (Reported) Sulfamethoxazole W/Trimethopri (Smz-Tmp Ds), 1 TAB PO HS, (Reported) Tamsulosin Hcl (Tamsulosin Hcl), 0.4 MG PO DAILY, (Reported) Discontinued Medications Trimethoprim (Trimethoprim), 100 MG PO DAILY, (Reported) Discharge Statement: "Patient was advised to return to the ER or call 911 if any headaches, dizziness, shortness of breath, chest pain, abdominal pain, bleeding, fevers, or worsening of medical condition. Patient was counseled about treatment plan, medications, possible side effects, patientverbalized understanding. All questions were answered to the best of my ability. This discharge took greater then 30 minutes in planning, reviewing documentation, counseling the patient, and discussing with other team members." ASSESSMENT ASSESSMENT Assessment 1. Urinary frequency suspect secondary to tamsulosin, resolved 2. No evidence of prostatitis as per Urology 3. Anxiety and depression disorder 4. Hypertension Date of Service: Mar 11, 2025 Billing Provider: THERESA OTERO MD Common Visit Codes: [id number] DISCH DAY >30min THERESA OTERO MD Mar 11, 2025 19:22
[2025-03-11 20:07] LABS: Chlamydia Trachomatis, NAA Negative (Negative); Neisseria gonorrhoeae, NAA Negative (Negative)
== END 2025-03-11 21:06 | disposition home or self-care (01) | DRG 48 ==
LOC: ER 20:38 → OVERFLOW 23:52 → TELE-WESTW 03-08 05:04
PROVIDERS: ADMIT Internal Medicine; ATTEND Internal Medicine
DX: G90.89 Other disorders of autonomic nervous system (principal); E87.1 Hypo-osmolality and hyponatremia; D64.9 Anemia, unspecified; I10 Essential (primary) hypertension; F32.A Depression, unspecified; R73.9 Hyperglycemia, unspecified; T50.995A Adverse effect of other drugs, medicaments and biological substances, initial encounter; F41.9 Anxiety disorder, unspecified; R35.0 Frequency of micturition; Y92.89 Other specified places as the place of occurrence of the external cause; Z79.899 Other long term (current) drug therapy
CPT/HCPCS: 36415; 71045; 76857; 80048; 80053; 80307; 80320; 81001; 82306; 82550; 82607; 83735; 83880; 84439; 84443; 84484; 85025; 85379; 96360; G0378; J1956